=== PATIENT | female | born 1950 | race Caucasian/White ===

== ENCOUNTER → 2023-10-12 06:24 | Day surgery (SDC) | payer MEDICARE, BC, SELFPAY ==
[2023-10-12 09:58] LABS: Glucose - Point of Care 182 mg/dl (70-99)
== END ==
LOC: GI 06:24
PROVIDERS: ATTENDING PHYSICIAN Internal Medicine Gastroenterology; FAMILY PHYSICIAN Internal Medicine
DX: Z12.11 Encounter for screening for malignant neoplasm of colon (principal); Z86.010 Personal history of colon polyps; K57.30 Diverticulosis of large intestine without perforation or abscess without bleeding; K64.8 Other hemorrhoids
CPT/HCPCS: G0105; 82962

== ENCOUNTER → 2024-09-13 14:39 | Outpatient (REF) | payer MEDICARE, BC, SELFPAY | LOC: HWWDC 14:39 | PROVIDERS: ATTENDING PHYSICIAN Internal Medicine | DX: Z12.31 Encounter for screening mammogram for malignant neoplasm of breast (principal) | CPT/HCPCS: 77063; 77067 ==

== ENCOUNTER → 2024-09-15 11:27 | Outpatient (REF) | payer MEDICARE, BC, SELFPAY | LOC: HWRAD 11:27 | PROVIDERS: ATTENDING PHYSICIAN Internal Medicine | DX: Z13.820 Encounter for screening for osteoporosis (principal); Z78.0 Asymptomatic menopausal state | CPT/HCPCS: 77080 ==